=== PATIENT | male | born 2000 | race Two or more races ===

== ENCOUNTER 2021-12-28 08:24 | Emergency (ER) | payer SELFPAY ==
[~2021-12-28] VITALS: Ht 170.2 cm; Wt 61.0 kg
[2021-12-28 08:40] VITALS: BP 119/62
[2021-12-28 10:25] LABS: Basophils # (auto) 0.1 10 ^3/uL (0-0.2); Basophils % (auto) 0.3 % (0.0-2.0); Eosinophils # (auto) 0 10 ^3/uL (0-0.8); Lymphocytes # (auto) 1.2 10 ^3/uL (0.4-5.4); White Blood Cell 24.9 10^3/uL (4.4-10.8)
[2021-12-28 10:28] LABS: Hematocrit 40.5 % (41.0-53.0); Hemoglobin 13.5 g/dL (13.5-17.5); Lymphocytes % (auto) 4.9 % (10.0-50.0); Mean Corpuscular Hemoglobin 28.4 pg (28.0-32.0); Mean Corpuscular Hgb Conc. 33.4 g/dL (32.0-36.0); Mean Corpuscular Volume 85.1 fL (80.0-100.0); Monocytes # (auto) 1.9 10 ^3/uL (0-1.3); Monocytes % (auto) 7.7 % (0.0-12.0); Neutrophils # (auto) 21.7 10 ^3/uL (1.6-8.6); Neutrophils % (auto) 87.1 % (37.0-80.0); Red Blood Cells 4.77 10^6/uL (4.5-5.90); Red Cell Distribution Width 12.7 % (11.8-14.3)
[2021-12-28 10:48] LABS: Albumin 3.7 g/dL (3.4-5.0); Calcium 9.2 mg/dL (8.5-10.1); Potassium 4.2 mmol/L (3.5-5.1)
[2021-12-28 10:54] LABS: BUN/Creatinine Ratio 11.4; Bilirubin, Total 1.2 mg/dL (0.2-1.0); Total Protein 9.6 g/dL (6.4-8.2)
== END 2021-12-28 12:16 | disposition left against medical advice (07) ==
LOC: ER 08:24
DX: R51.9 Headache, unspecified (principal); R11.2 Nausea with vomiting, unspecified; Z53.21 Procedure and treatment not carried out due to patient leaving prior to being seen by health care provider
CPT/HCPCS: 36415; 70450; 80053; 82140; 85025